=== PATIENT | male | born 1990 | race American Indian/Alaskan Native ===

== ENCOUNTER 2016-10-28 13:32 | Emergency (ER) | payer OTHER ==
[2016-10-28 14:03] VITALS: BP 138/80; PULSE 76; RESP 16; TEMP 98.7; O2SAT 98
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
== END 2016-10-28 14:45 | disposition home or self-care (01) ==
LOC: C.ER 13:32
DX: Z48.01 Encounter for change or removal of surgical wound dressing (principal)

== ENCOUNTER 2017-12-14 12:11 | Emergency (ER) | payer MEDICAID, OTHER ==
[2017-12-14 12:23] VITALS: BP 110/78; PULSE 72; RESP 18; TEMP 98; O2SAT 97
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
[2017-12-14] MEDS ORDERED: Naproxen 550 mg Tab PO STA (13:24)
[2017-12-14] MEDS ORDERED: Naproxen 550 mg Tab PO ONE (13:28)
--- NOTE | 2017-12-14 13:47 | RAD ---
Date of service: 12/14/2017 HISTORY: pleuritic pain, chest pain COMPARISON: No prior. TECHNIQUE: Chest PA and lateral FINDINGS: LUNGS: No active pulmonary disease. PLEURA: No significant pleural effusion identified. No pneumothorax apparent. CARDIOVASCULAR: Normal. OSSEOUS STRUCTURES: No significant abnormalities. VISUALIZED UPPER ABDOMEN: Normal. OTHER FINDINGS: None. IMPRESSION: No active disease.
== END 2017-12-14 13:39 | disposition home or self-care (01) ==
LOC: C.ER 12:11
DX: M62.838 Other muscle spasm (principal)

== ENCOUNTER 2017-12-23 12:21 | Emergency (ER) | payer MEDICAID ==
[2017-12-23 12:43] VITALS: BP 136/79; PULSE 80; RESP 18; TEMP 98.2; O2SAT 96
--- NOTE | 2017-12-23 12:54 | C.PDOC ---
History Of Present Illness 27 y/o male presents to ED for wound check on left forearm. Patient denies fever , chills, discharge, active bleeding, new trauma or any other complaints at this time. Time Seen by Provider: 12/23/17 12:47 Chief Complaint (Nursing): Wound Check History Per: Patient History/Exam Limitations: no limitations Onset/Duration Of Symptoms: Days Ago Current Symptoms Are (Timing): Still Present Past Medical History Reviewed: Historical Data, Nursing Documentation, Vital Signs Vital Signs: Last Vital Signs Temp 98.2 F 12/23/17 12:41 Pulse 80 12/23/17 12:41 Resp 18 12/23/17 12:41 BP 136/79 12/23/17 12:41 Pulse Ox 96 12/23/17 13:09 - Medical History PMH: No Chronic Diseases Surgical History: No Surg Hx Family History: States: No Known Family Hx - Social History Hx Alcohol Use: Yes Hx Substance Use: No - Immunization History Hx Tetanus Toxoid Vaccination: Yes Hx Influenza Vaccination: No Hx Pneumococcal Vaccination: No Review Of Systems ENT: Negative for: Ear Discharge Respiratory: Negative for: Shortness of Breath Musculoskeletal: Positive for: Arm Pain Skin: Negative for: Rash, Bruising Neurological: Negative for: Weakness, Numbness Physical Exam - Physical Exam Appears: Non-toxic, No Acute Distress Skin: Warm, Dry, No Rash, Other (3cm wound to left forearm, sutures intact, no surrounding erythema or discharge) Head: Atraumatic, Normacephalic Eye(s): bilateral: Normal Inspection, EOMI Nose: Normal Oral Mucosa: Moist Neck: Normal ROM, Supple Chest: Symmetrical Respiratory: No Accessory Muscle Use Extremity: Normal ROM, Capillary Refill (<2 seconds), No Deformity, No Swelling Pulses: Left Radial: Normal Neurological/Psych: Oriented x3, Normal Motor, Normal Sensation ED Course And Treatment O2 Sat by Pulse Oximetry: 96 (RA) Pulse Ox Interpretation: Normal Disposition - Disposition Disposition: HOME/ ROUTINE Disposition Time: 12:53 Condition: STABLE Additional Instructions: Suture removal in 7 days. 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 - Scribe Statement The provider has reviewed the documentation as recorded by the Bhavanaibjovana Conoey All medical record entries made by the Scribe were at my direction and personally dictated by me. I have reviewed the chart and agree that the record accurately reflects my personal performance of the history, physical exam, medical decision making, and the department course for this patient. I have also personally directed, reviewed, and agree with the discharge instructions and disposition.
== END 2017-12-23 13:19 | disposition home or self-care (01) ==
LOC: C.ER 12:21
DX: Z48.00 Encounter for change or removal of nonsurgical wound dressing (principal)

== ENCOUNTER 2018-01-08 10:22 | Emergency (ER) | payer MEDICAID, OTHER ==
[2018-01-08 10:26] VITALS: BMI 36.6
[2018-01-08 10:27] VITALS: BP 132/85; PULSE 62; RESP 20; TEMP 98.3; O2SAT 98
--- NOTE | 2018-01-08 11:23 | C.PDOC ---
History Of Present Illness 27 y/o male presents to the ER for removal of 2 sutures from left forearm. Patient had sutures placed in [facility] ER on 12/20/17. Patient denies having drainage, fluctuance, fever, and chills. Time Seen by Provider: 01/08/18 10:30 Chief Complaint (Nursing): Suture/Staple Removal History Per: Patient History/Exam Limitations: no limitations Past Medical History Reviewed: Historical Data, Nursing Documentation, Vital Signs Vital Signs: Last Vital Signs Temp 98.3 F 01/08/18 10:26 Pulse 62 01/08/18 10:26 Resp 20 01/08/18 10:26 BP 132/85 01/08/18 10:26 Pulse Ox 98 01/08/18 10:26 - Medical History PMH: No Chronic Diseases Surgical History: No Surg Hx Family History: States: No Known Family Hx - Social History Hx Alcohol Use: Yes Hx Substance Use: No - Immunization History Hx Tetanus Toxoid Vaccination: Yes Hx Influenza Vaccination: No Hx Pneumococcal Vaccination: No Review Of Systems Except As Marked, All Systems Reviewed And Found Negative. Constitutional: Negative for: Fever, Chills Physical Exam - Physical Exam Appears: Non-toxic, No Acute Distress Skin: Normal Color, Warm, Dry, Other (2 sutures to left forearm, no drainage, no fluctuance) Head: Atraumatic, Normacephalic Eye(s): bilateral: Normal Inspection Nose: Normal Oral Mucosa: Moist Neck: Supple Chest: Symmetrical Neurological/Psych: Oriented x3, Normal Speech ED Course And Treatment O2 Sat by Pulse Oximetry: 98 (RA) Pulse Ox Interpretation: Normal Medical Decision Making Medical Decision Making: Sutures have been removed. Patient has been discharged and instructed to follow up with PMD if there signs of infection. Disposition - Disposition Referrals: [facility] Eliseo Ortiz, [Non-Staff] - Disposition: HOME/ ROUTINE Disposition Time: 10:30 Condition: GOOD Additional Instructions: JORDON DONIS, thank you for letting us take care of you today. Your provider was Darren Park DO and you were treated for WOUND CHECK. The emergency medical care you received today was directed at your acute symptoms. If you were prescribed any medication, please fill it and take as directed. It may take several days for your symptoms to resolve. Return to the Emergency Department if your symptoms worsen, do not improve, or if you have any other problems. Please contact your doctor or call one of the physicians/clinics you have been referred to that are listed on the Patient Visit Information form that is included in your discharge packet. Bring any paperwork you were given at discharge with you along with any medications you are taking to your follow up visit. Our treatment cannot replace ongoing medical care by a primary care provider outside of the emergency department. Thank you for allowing the [facility] team to be part of your care today. Follow up with your primary care doctor if there are signs of infection or you have any concerns. Instructions: Stitches Removal Forms: [employer] (Georgian) - Clinical Impression Clinical Impression: Removal of suture - Scribe Statement The provider has reviewed the documentation as recorded by the Bhavanaibe Elyse Roe Provider Attestation: All medical record entries made by the Bhavanaibe were at my direction and personally dictated by me. I have reviewed the chart and agree that the record accurately reflects my personal performance of the history, physical exam, medical decision making, and the department course for this patient. I have also personally directed, reviewed, and agree with the discharge instructions and disposition.
== END 2018-01-08 10:54 | disposition home or self-care (01) ==
LOC: C.ER 10:22
DX: Z48.02 Encounter for removal of sutures (principal)